=== PATIENT | female | born 1935 | race African-American/Black ===

== ENCOUNTER 2018-08-12 17:01 | Emergency (ER) | payer MEDICARE ==
[~2018-08-12] VITALS: Ht 165.1 cm; Wt 90.0 kg
[~2018-08-12 17:01] MED LIST: ACIPHEX20 MG OR; ALLEGRA180 MG PO; BAYER ASA325 MG OR; BENTYL10 MG OR; CENTRUM OR; DICYCLOMINE10 MG PO; ELMIRON100 MG OR; GINKOBA40 MG PO; HYDROXYZ HCL25 MG OR; KEFLEX500 MG OR; LEVOTHYROXIN50 MCG PO; LEXAPRO10 MG OR; METO25TAB OR; NIFEDIPINE30 MG PO; RANITIDINE150 M1 PO; VICODIN1 TA1 PO; VITAMIN D-32000 UNI1 PO; [UNRECOGNIZED DRUG - OTHER] OR
[2018-08-12] MEDS ORDERED: NORCO1 TA1 PO (17:51)
[2018-08-12] MEDS ORDERED: METOPROL TAR25 MG PO (17:52)
[2018-08-12] MEDS ORDERED: GENTEAL TEARS (17:55)
[2018-08-12] MEDS ORDERED: PREDNISONE1 MG PO (17:56)
[2018-08-12 18:08] LABS: HEMATOCRIT 40.9 % (37.0-47.0); HEMOGLOBIN 12.5 g/dl (12.0-16.0); IMMATURE GRANULOCYTES 0.3 % (0.0-5.0); MEAN CELL VOLUME 93.4 fL CALC (80.0-100.0); MEAN CORPUSCULAR HGB 28.5 pG CALC (26.0-32.0); MEAN CORPUSCULAR HGB CONC 30.6 g/L CALC (32.0-36.0); NEUT# 6.74 thou/uL (2.00-7.15); RED BLOOD COUNT 4.38 mill/uL (4.20-5.60); RED CELL DISTRI WIDTH 13.5 % (11.5-15.5)
[2018-08-12 18:11] LABS: ALBUMIN 4.7 g/dL (3.2-5.0); ALKALINE PHOSPHATASE 43 u/l (38-126); ANION GAP 17 (6-22 (CALC)); BILIRUBIN, TOTAL 1.5 mg/dL (0.0-1.4); BUN 18 mg/dL (8-23); BUN/CREATININE RATIO 26 (12-20 (CALC)); CARBON DIOXIDE 26 mmol/l (22-30); CHLORIDE 106 mmol/l (95-108); CREATININE 0.7 mg/dL (0.5-1.0); GFR > 60 ML/MIN (>=60 (CALC)); GFR FOR AFR.AMER. > 60 ML/MIN (>=60 (CALC)); LIPASE 55 u/l (23-300); POTASSIUM 4.1 mmol/l (3.5-5.1); SGPT/ALT 34 u/l (11-66); SODIUM 145 mmol/l (137-146); TOTAL PROTEIN 8.9 g/dL (6.3-8.2)
[2018-08-12 18:13] LABS: SGOT/AST 53 u/l (9-36)
[2018-08-12] MEDS ORDERED: PROTONIX40 M2 PO (19:00)
[2018-08-12] MEDS ORDERED: CARAFATE1 G1 PO (20:14)
[2018-08-12 20:44] VITALS: BP 143/81
== END 2018-08-12 20:44 | disposition home or self-care (01) ==
LOC: ED 17:01
PROVIDERS: Family Medicine
DX: K29.70 Gastritis, unspecified, without bleeding (principal)
CPT/HCPCS: S0164

== ENCOUNTER 2018-09-18 08:35 | Day surgery (SDC) | payer MEDICARE ==
[~2018-09-18] VITALS: Ht 167.6 cm; Wt 67.1 kg
[~2018-09-18 08:35] MED LIST changes: +CARAFATE1 G1 PO; +GENTEAL TEARS; +METOPROL TAR25 MG PO; +NORCO1 TA1 PO; +PREDNISONE1 MG PO; +PROTONIX40 M2 PO; +Prednisone OU
[2018-09-18 11:01] VITALS: BP 146/70
== END 2018-09-18 11:18 | disposition home or self-care (01) ==
LOC: ENDO 08:35 → ORM 11:30 → ENDO 11:30 → ORM 13:35
PROVIDERS: ATTEND Surgery
PROC: 0DJ08ZZ Inspection of Upper Intestinal Tract, Via Natural or Artificial Opening Endoscopic (ICD-10-PCS; principal; 2018-09-18)
PROC: 0DJD8ZZ Inspection of Lower Intestinal Tract, Via Natural or Artificial Opening Endoscopic (ICD-10-PCS; 2018-09-18)
DX: K92.0 Hematemesis (principal); R19.5 Other fecal abnormalities; R11.0 Nausea; R10.9 Unspecified abdominal pain